=== PATIENT | male | born 1995 ===

== ENCOUNTER 2019-10-16 09:49 | Inpatient (IN) | payer OTHER ==
[~2019-10-16] VITALS: Ht 175.3 cm; Wt 72.6 kg
--- NOTE | 2019-10-16 10:02 | NUR ---
SE RECIBE AL PACIENTE ALERTA Y ORIENTADO EN ZAHRA TRENT ESFERAS. PACIENTE REFIERE QUE VINE POR DOLOR EN LA MANO IZQUIERDA. PACIENTE PRESENTA EDEMA EN IZQUIERDA.
[2019-10-16] MEDS ORDERED: CLEOCIN PH600 MG/4 M IV (10:07)
[2019-10-22] MEDS ORDERED: BACTRIM DS TAB1 EACH PO (11:05)
== END 2019-10-22 13:23 | disposition home or self-care (01) | DRG 603 ==
LOC: ER 09:49 → SEC-K 14:27 → MEDJ 10-17 13:45
PROVIDERS: ADMIT Internal Medicine
PROC: 8E0ZXY6 Isolation (ICD-10-PCS; 2019-10-16)
PROC: BP3DY0Z Magnetic Resonance Imaging (MRI) of Left Hand/Finger Joint using Other Contrast, Unenhanced and Enhanced (ICD-10-PCS; principal; 2019-10-17)
DX: L03.114 Cellulitis of left upper limb (principal); J11.1 Influenza due to unidentified influenza virus with other respiratory manifestations
CPT/HCPCS: 73218